=== PATIENT | female | born 1995 | race American Indian/Alaskan Native ===

== ENCOUNTER 2021-06-06 07:23 | Emergency (ER) | payer OTHER ==
[~2021-06-06] VITALS: Ht 157.5 cm; Wt 81.7 kg
[2021-06-06] MEDS ORDERED: METRONIDAZOLE250 MG PO (12:07)
== END 2021-06-06 13:19 | disposition home or self-care (01) ==
LOC: ED 07:23
DX: R19.7 Diarrhea, unspecified (principal)
CPT/HCPCS: 80053; 81001; 84703; 85025; 87177; 96374; 96375; 99284-25; J1885; J2405; J7030